=== PATIENT | female | born 1975 | race African-American/Black ===

== ENCOUNTER 2018-05-13 17:19 | Emergency (ER) | payer MEDICAID ==
[~2018-05-13] VITALS: Ht 165.1 cm; Wt 104.0 kg
[2018-05-13] MEDS ORDERED: IBUPROFEN 800MG TABLET PO ONE (19:15)
[2018-05-13] MEDS ORDERED: HYDROCODONE/ACETAMINOPHEN 5/325MG TABLET PO ONE (19:15)
[2018-05-13] MEDS ORDERED: LIDOCAINE/EPINEPHR/TETRACAINE 3ML TP ONE (19:15)
[2018-05-13 22:30] VITALS: BP 132/70
== END 2018-05-13 22:30 | disposition home or self-care (01) ==
LOC: ER 17:19
DX: S91.332A Puncture wound without foreign body, left foot, initial encounter (principal); M54.30 Sciatica, unspecified side; J06.9 Acute upper respiratory infection, unspecified; W22.8XXA Striking against or struck by other objects, initial encounter; Y93.89 Activity, other specified; Y92.89 Other specified places as the place of occurrence of the external cause; Y99.8 Other external cause status
CPT/HCPCS: 73620; 81025; 99284